=== PATIENT | female | born 1985 | race Caucasian/White ===

== ENCOUNTER 2018-08-12 13:24 | Emergency (ER) | payer OTHER, SELFPAY ==
[~2018-08-12] VITALS: Ht 180.3 cm; Wt 63.6 kg
--- NOTE | 2018-08-12 13:58 | NUR ---
BIB EMS FROM HOME. PLACED ON LEGAL HOLD BY [employer]. HX OF SELF HARM W/O SI HAS BEEN DIRECTOR LEARNING SERVICES PAST. DID NOT HAVE ANY RAZORS AT HOME SO USE IV NEEDLE TO PUNCTURE RADIAL ARTERY. PT CALM AND COOPERATIVE, DENIES SI/HI VERBALIZES THAT SHE DOES HAVE A HX OF SELF HARM BY CUTTING BUT DENIES ANY ATTEMPTS OF SI. PT STATES THAT SHE USED A IV NEEDLE TO PUNCTURE HER RADIAL ARTERY AND LET IT BLEED THEN PULLED IT OUT. PT HAS LEONILA HEMATOMAS NOTED TO RADIALS BUT PULSE REMAINS PALPABLE. DR MITTAL AT BEDSIDE. POC DISCUSSED AND QUESTIONS ANSWERED. PT AMB TO BATHROOM UPRIGHT STEADY GAIT. URINE SAMPLE COLLECTED AND SENT TO LAB. PT REMOVED ALL CLOTHES EXCEPT UNDERWEAR, CLOTHES AND PURSE PLACED IN BELONGINGS BAG, LABELED AND SECURED IN LOCKER. WARM BLANKETS PROVIDED, CALL LIGHT W/I REACH. MEAL TRAY ORDERED.
[2018-08-12 14:12] LABS: BASOPHILS # (AUTO) 0.02 x10^3/uL (0-0.1); BASOPHILS % (AUTO) 0 % (0-1); EOSINOPHILS # (AUTO) 0.01 x10^3/uL (0-0.4); EOSINOPHILS % (AUTO) 0 % (1-7); LYMPHOCYTES # (AUTO) 1.41 x10^3/uL (1-3.4); LYMPHOCYTES % (AUTO) 31 % (22-44); MD NO; MEAN CORPUSCULAR VOLUME 88.3 fL (80-100); MEAN PLATELET VOLUME 9.4 fL (7.4-10.4); MONOCYTES # (AUTO) 0.33 x10^3/uL (0.2-0.8); MONOCYTES % (AUTO) 7 % (2-9); NEUTROPHILS # (AUTO) 2.84 x10^3/uL (1.8-6.8); NEUTROPHILS % (AUTO) 62 % (42-75); PLATELET COUNT 199 x10^3/uL (130-400); RED BLOOD COUNT 4.44 x10^6/uL (3.82-5.3); RED CELL DISTRIBUTION WIDTH 15.3 % (9.6-15.2)
[2018-08-12 14:18] LABS: ANION GAP 8 mmol/L (5-15); CALCIUM 8.7 mg/dL (8.5-10.1); CHLORIDE 110 mmol/L (98-107)
[2018-08-12 14:21] LABS: AMPHETAMINE SCREEN, URINE Negative (Negative); BARBITURATE SCREEN, URINE Negative (Negative); BENZODIAZEPINE SCREEN, URINE Negative (Negative); CANNABINOID SCREEN, URINE Negative (Negative); COCAINE SCREEN, URINE Negative (Negative); METHADONE SCREEN, URINE Negative (Negative); OPIATE SCREEN, URINE Negative (Negative)
[2018-08-12 14:29] LABS: ALANINE AMINOTRANSFERASE 31 U/L (12-78); ALKALINE PHOSPHATASE 61 U/L (45-117); BILIRUBIN,TOTAL 0.8 mg/dL (0.2-1.0); CREATININE 0.97 mg/dL (0.55-1.02); TOTAL PROTEIN 6.7 g/dL (6.4-8.2)
[2018-08-12 14:35] LABS: SALICYLATE LEVEL < 1.7 mg/dL (2.8-20.0)
[2018-08-12 14:38] LABS: ACETAMINOPHEN < 2 mcg/mL (10-30)
--- NOTE | 2018-08-12 14:42 | NUR ---
MEAL TRAY PROVIDED.
--- NOTE | 2018-08-12 16:07 | NUR ---
SBAR RPT TO SOC.
--- NOTE | 2018-08-12 16:38 | NUR ---
SPOKE WITH SOC, SOC RECOMMENDS UPHOLDING LEGAL HOLD AND WILL BE SENDING HER EVAL BY FAX. DR MITTAL INFORMED
--- NOTE | 2018-08-12 17:48 | NUR ---
PT WITH [facility]. DENIED BY [facility]
[2018-08-12 18:00] VITALS: BP 115/72
--- NOTE | 2018-08-12 18:00 | NUR ---
PACKET FAXED TO [facility], [facility] AND [facility]
--- NOTE | 2018-08-12 18:12 | NUR ---
PT DECLINES DINNER TRAY AT THIS TIME. MEAL LABELED AND PLACED IN PT CARE REFRIDGERATOR
[2018-08-12] MEDS ORDERED: LEVO88TA4 PO (19:06)
[2018-08-12] MEDS ORDERED: BUPR200T2 PO (19:06)
--- NOTE | 2018-08-12 19:06 | NUR ---
Bedside report from NEYDA Doss. Patient resting in [facility]. No needs. Plan is to transfer to [facility] at 2100.
--- NOTE | 2018-08-12 19:07 | NUR ---
MEAL TRAY PROVIDED AT THIS TIME PER PT REQUEST
--- NOTE | 2018-08-12 19:30 | NUR ---
Report to NEYDA Dodson at [facility].
[2018-08-12] MEDS ORDERED: CLON1TAB PO (19:33)
--- NOTE | 2018-08-12 20:12 | NUR ---
PT SITTING UP ON GURNEY, FAMILY AT PT'S BEDSIDE, NAD, DENIES NEEDS AT THIS TIME, ROOM REMAINS SECURED, SITTER AT DOORWAY FOR CONTINOUS MONITORING
--- NOTE | 2018-08-12 21:36 | NUR ---
PT RESTING CALMLY, SITTING UP IN BED, NAD, SITTER AT DOORWAY FOR CONTINOUS MONITORING
== END 2018-08-12 21:56 ==
LOC: ED 14:14
DX: S49.92XA Unspecified injury of left shoulder and upper arm, initial encounter (principal); S49.91XA Unspecified injury of right shoulder and upper arm, initial encounter; X78.8XXA Intentional self-harm by other sharp object, initial encounter; Y93.89 Activity, other specified; Y92.89 Other specified places as the place of occurrence of the external cause; Y99.8 Other external cause status
CPT/HCPCS: 36415; 80053; 80307; 80329; 84443; 84703; 85025; 93005; 99285; G0480